=== PATIENT | male | born 1945 | race Caucasian/White ===

== ENCOUNTER 2018-04-09 13:45 | Emergency (ER) | payer OTHER ==
[~2018-04-09] VITALS: Ht 180.3 cm; Wt 92.0 kg
[~2018-04-09 13:45] MED LIST: ACETASOL HC EAR10 ML BOTH EARS; ALTACE10 MG PO; ASPIR 8181 M1 PO; CIALIS10 MG PO; CRESTOR20 MG PO; FISH OIL 500 M1 EAC2 PO; LIPITOR80 MG PO; METOPROLOL TART50 MG PO; MOBIC15 MG PO; NITROSTAT0.4 MG SL; PERCOCET 5/31 TABLET PO; PLAVIX75 MG PO; PRILOSEC20 MG PO; SERTRALINE HCL50 MG PO; XANAX0.25 MG PO; XANAX0.5 MG PO
[2018-04-09] MEDS ORDERED: XARELTO1 EACH PO (16:51)
[2018-04-09 17:10] VITALS: BP 129/71
== END 2018-04-09 17:10 | disposition home or self-care (01) ==
LOC: EME 13:45
DX: I82.411 Acute embolism and thrombosis of right femoral vein (principal); M79.661 Pain in right lower leg; E11.9 Type 2 diabetes mellitus without complications; J45.909 Unspecified asthma, uncomplicated; I25.2 Old myocardial infarction; Z85.828 Personal history of other malignant neoplasm of skin; Z85.46 Personal history of malignant neoplasm of prostate; Z95.0 Presence of cardiac pacemaker; Z88.1 Allergy status to other antibiotic agents
CPT/HCPCS: 93971; 99281; 99284